=== PATIENT | male | born 1945 | race Asian ===

== ENCOUNTER 2017-03-26 06:00 | Day surgery (SDC) | END 2017-03-26 10:30 | disposition home or self-care (01) | DX: K40.90 Unilateral inguinal hernia, without obstruction or gangrene, not specified as recurrent (principal); I25.10 Atherosclerotic heart disease of native coronary artery without angina pectoris; Z95.5 Presence of coronary angioplasty implant and graft; E78.5 Hyperlipidemia, unspecified; I10 Essential (primary) hypertension | CPT/HCPCS: 49505; C1781; J0461; J0690; J2175; J3010 ==